=== PATIENT | male | born 1950 | race Two or more races ===

== ENCOUNTER 2017-02-18 07:30 | Inpatient (IN) | payer OTHER ==
[2017-02-17 16:33] VITALS: BMI 37.6
[2017-02-18] VITALS (21 sets, daily range): BP systolic 110–153; BP diastolic 57–157; PULSE 72–82; RESP 8–20; Ht 177.8 cm; Wt 112.0 kg
[~2017-02-18] VITALS: Ht 177.8 cm; Wt 112.0 kg
[2017-02-18] MEDS: KNEE PAIN COCKTAIL VANCO INJ SCH ×12 (07:00→13:38)
[~2017-02-18 07:30] MED LIST: ATOR40TA68 PO; GLIP-95 PO; HYDR25TA6 PO; LISI40TA9 PO; MELO7.5O PO; METF1000 PO; PANT40TA4 PO; TROS20TA2 PO
[2017-02-18] MEDS ORDERED: BACITRACIN 50000 UNITS INJ ONE (12:01)
--- NOTE | 2017-02-18 12:02 | HPN ---
Date/Time of Note Date/Time of Note DATE: 02/18/17 TIME: 12:01 Interval H&P Admission Note Pt. seen H&P reviewed: No system changes NAVARRO LIGHT PA-C Feb 18, 2017 12:02
[2017-02-18] MEDS ORDERED: POLYMYXIN B 500000 UNIT INJ ONE (12:03)
[2017-02-18] MEDS ORDERED: LIDOCAINE 2% (SDV) 5 ML INJ ONE (12:37)
[2017-02-18] MEDS ORDERED: PROPOFOL 20 ML ONE (12:37)
[2017-02-18] MEDS ORDERED: FENTAnyl 50 MCG/ML VIAL ONE (12:38)
[2017-02-18] MEDS ORDERED: MIDAZOLAM 1 MG/ML 2 ML INJ ONE (12:38)
[2017-02-18] MEDS ORDERED: PHENYLephrine (100 MCG/ML) 5ML SYG ONE ×2 (12:52→14:07)
[2017-02-18] MEDS ORDERED: METOCLOPRAMIDE 10 MG INJ ONE (12:59)
[2017-02-18] MEDS ORDERED: ONDANSETRON 4 MG INJ ONE (12:59)
[2017-02-18] MEDS ORDERED: TRANEXAMIC ACID 1,000 MG in SOD CHLORIDE 0.9% 100 ML IV SCH (13:00)
[2017-02-18] MEDS ORDERED: TRANEXAMIC ACID 1,000 MG in SOD CHLORIDE 0.9% 100 ML IV ONE (13:00)
[2017-02-18] MEDS ORDERED: FAMOTIDINE 20 MG INJ ONE (13:00)
[2017-02-18] MEDS ORDERED: VANCOMYCIN 1 GM (PMX) 250 ML ONE (13:00)
--- NOTE | 2017-02-18 15:10 | SIPON ---
Date/Time of Note Date/Time of Note DATE: 02/18/17 TIME: 15:09 Operative Report Preoperative Diagnosis Right Knee Osteoarthritis Postoperative Diagnosis Same Operation/Procedure Performed Right Total Knee Arthroplasty Surgeon Brian Salinas MD assistant wrestling coach Zoran Geiger Second assist: NAVARRO LIGHT PA-C Anesthesia: spinal Estimated blood loss: 150 - 200 ml's Transfusion Required none Specimen Bone Grafts/Implants [facility] [employer] Size 7 femur, size 6 tibia, 35mm patella, 9mm poly Complications none TIFFANIE SALINAS MD Feb 18, 2017 15:10
[2017-02-18] MEDS ORDERED: ROPIVACAINE 0.5 % 30 ML VIAL ONE (15:31)
--- NOTE | 2017-02-18 15:45 | PDOCDIS ---
Discharge Instructions DIAGNOSIS Discharge Diagnosis Status post right total knee replacement CONDITION Patient Condition: Good HOME CARE INSTRUCTIONS: Diet Instructions: Regular ACTIVITY: Activity Restrictions: Slowly Increase Activity Rest between Activity Avoid heavy lifting No Sexual Activity Do not Drive Do not operate Machinery Do not operate Power Tool Avoid Heavy Housework Keep Limb Elevated (2-3 pillows underneath the right foot/ankle only. May apply cold therapy.) Weight Bearing (Weight-bear as tolerated with front wheeled walker) Bathing Restrictions: Shower (Surgical dressing to remain on status post surgery. Please keep surgical region clean and dry.) FOLLOW UP/APPOINTMENTS Follow-up Plan Follow-up at postoperative visit provided at her preoperative exam today. NAVARRO LIGHT PA-C Feb 18, 2017 15:45
[2017-02-18] MEDS ORDERED: NA PHOSPHATE/BIPHOS 133 ML ENEMA PR PRN (16:00)
[2017-02-18] MEDS ORDERED: oxyCODONE 5 MG TAB PO PRN (16:00)
[2017-02-18] MEDS ORDERED: ZOLPIDEM 5 MG TAB PO PRN (16:00)
[2017-02-18] MEDS ORDERED: DOCUSATE SODIUM 100 MG CAP PO ONE (16:00)
[2017-02-18] MEDS ORDERED: MAGNESIUM HYDROXIDE 30ML CUP PO PRN (16:00)
[2017-02-18] MEDS ORDERED: ASPIRIN (EC) 325 MG TAB PO ONE (16:00)
[2017-02-18] MEDS ORDERED: BISACODYL 10 MG SUPP PR PRN (16:00)
[2017-02-18] MEDS ORDERED: NALOXONE (0.4 MG/ML) INJ IV PRN (16:00)
[2017-02-18] MEDS ORDERED: BETHANECHOL 25 MG TAB PO PRN (16:00)
[2017-02-18] MEDS ORDERED: DIPHENHYDRAMINE 50 MG INJ IM PRN (16:00)
--- NOTE | 2017-02-18 16:23 | RADRPT ---
PROCEDURE: XR Knee. CLINICAL INDICATION: Right knee pain TECHNIQUE: 2 images of the right knee are available for review. COMPARISON: None available FINDINGS: There is a total right knee arthroplasty in anatomic alignment. There is significant anterior soft t issue swelling and gas. There is no evidence of acute fracture. IMPRESSION: 1. Recent total right knee arthroplasty in anatomic alignment with significant anterior soft tissue swelling and gas. RPTAT: UU .Brant Quezada MD, MD Date Time Electronically viewed and signed by .Brant Quezada MD, on 02/18/2017 16:23 .K/
[2017-02-18] MEDS ORDERED: MEPERIDINE 25 MG INJ IV PRN (16:30)
[2017-02-18] MEDS ORDERED: LABETALOL HCL 20MG INJ IV PRN (16:30)
[2017-02-18] MEDS ORDERED: FENTAnyl 50 MCG/ML VIAL IV PRN (16:30)
[2017-02-18] MEDS ORDERED: DIPHENHYDRAMINE 50 MG INJ IV PRN (16:30)
[2017-02-18] MEDS ORDERED: ONDANSETRON 4 MG INJ IV PRN (16:30)
[2017-02-18] MEDS ORDERED: hydrALAzine 20 MG INJ IV PRN (16:30)
[2017-02-18] MEDS ORDERED: PROCHLORPERAZINE 10 MG INJ IV PRN (16:30)
[2017-02-18] MEDS: ONDANSETRON 4 MG INJ IV SCH ×2 (16:30→21:02)
[2017-02-18] MEDS: HYDROmorphONE (0.2 MG/ML) 10ML SYG IV PRN ×2 (16:49→16:54)
[2017-02-18] MEDS: VANCOMYCIN 1 GM (PMX) 250 ML IVPB SCH (17:42)
[2017-02-18] MEDS: SOD CHLORIDE 0.9% 1,000 ML IV SCH (17:42)
[2017-02-18] MEDS: KETOROLAC 15 MG INJ IV PRN (17:43)
[2017-02-18] MEDS: ASPIRIN (EC) 325 MG TAB PO SCH (20:57)
[2017-02-18] MEDS: oxyCODONE 5 MG TAB PO PRN (20:57)
[2017-02-19 00:29] VITALS: BP 123/58; RESP 20
[2017-02-19 03:39] VITALS: BP 122/56; PULSE 82; RESP 17
[2017-02-19] MEDS: oxyCODONE 5 MG TAB PO PRN ×5 (03:44→18:15)
[2017-02-19] MEDS: ONDANSETRON 4 MG INJ IV SCH ×2 (03:44→09:26)
[2017-02-19] MEDS: SOD CHLORIDE 0.9% 1,000 ML IV SCH ×3 (04:15→20:29)
[2017-02-19 05:16] LABS: HEMATOCRIT 28.4 % (42.0-52.0); HEMOGLOBIN 9.1 g/dl (14.0-18.0); MEAN CORPUSCULAR HEMOGLOBIN 27.5 pg (29.0-33.0); MEAN CORPUSCULAR VOLUME 85.8 fl (82.0-101.0); MEAN PLATELET VOLUME 9.5 fl (7.4-10.4); PLATELET COUNT 146 10^3/UL (140-415); POSITIVE DIFF @See below; RED BLOOD COUNT 3.31 10^6/ul (4.70-6.10); RED CELL DISTRIBUTION WIDTH 15.4 % (11.5-14.5)
[2017-02-19] MEDS: KETOROLAC 15 MG INJ IV PRN ×2 (05:36→13:15)
[2017-02-19] MEDS: PANTOPRAZOLE (EC) 40 MG TAB PO SCH (05:36)
[2017-02-19] MEDS: VANCOMYCIN 1 GM (PMX) 250 ML IVPB SCH (05:37)
[2017-02-19 05:41] LABS: CALCIUM 8.2 mg/dl (8.4-10.2); CREATININE 0.96 mg/dl (0.61-1.24); POTASSIUM 3.8 mmol/L (3.5-5.1)
[2017-02-19 08:04] VITALS: BP 123/58; RESP 20
--- NOTE | 2017-02-19 08:22 | PN ---
Date/Time of Note Date/Time of Note DATE: 02/19/17 TIME: 08:21 Assessment/Plan VTE Prophylaxis VTE Prophylaxis Intervention: ambulation, SCD's, other (Aspirin 325 mg) Lines/Catheters IV Catheter Type (from Nrsg): Peripheral IV Rubio in Place (from Nrsg): Yes Assessment/Plan Assessment/Plan -Pain Meds as needed -Dressing is clean and intact. -OOB with PT -ASA/SCDs for DVT Prophylaxis -Continue monitoring with Internal Medicine -Patient Stable Subjective 24 Hr Interval Summary 66-year-old male postop day 1 status post right total knee arthroplasty. Patient experience severe pain overnight. Pain is currently controlled with pain medication. Has yet to initiate physical therapy. Denies any chest pain/ tightness or shortness of breath. Denies any calf pain. Pain Control: moderate Exam/Review of Systems Vital Signs Vitals Vital Signs Date Time Temp Pulse Resp B/P Pulse Ox O2 Delivery O2 Flow Rate FiO2 02/19/17 08:04 99.3 83 20 123/58 97 02/19/17 03:39 Nasal Cannula 2.0 Intake and Output 02/18/17 02/18/17 02/19/17 15:00 23:00 07:00 Intake Total 2300 ml 930 ml 1540 ml Output Total 1250 ml 1000 ml Balance 2300 ml -320 ml 540 ml Exam Free Text/Dictation -No complications with dressing intact. -5/5 Tibialis Anterior, EHL Gastrocnemius/Soleus and Peroneals -Normal Sensation -Palpable DP/PT, Capillary Refill <2 secs -No Distal Edema -Negative Leslee Sign/No calf pain -Toes Freely Movable Results Result Diagram: 02/19/17 0433 02/19/17 0433 NAVARRO LIGHT PA-C Feb 19, 2017 08:22
[2017-02-19] MEDS: DOCUSATE SODIUM 100 MG CAP PO SCH ×2 (09:25→20:29)
[2017-02-19] MEDS: FERROUS FUMARATE (SR) TAB PO SCH ×2 (09:25→20:29)
[2017-02-19] MEDS: CELECOXIB 200 MG CAP PO SCH ×2 (09:25→20:28)
[2017-02-19] MEDS: GABAPENTIN 100 MG CAP PO SCH ×2 (09:25→20:29)
[2017-02-19] MEDS: ASPIRIN (EC) 325 MG TAB PO SCH ×2 (09:25→20:29)
[2017-02-19] MEDS: SENNA/DOCUSATE NA (8.6MG/50MG) TAB PO PRN (09:26)
[2017-02-19] MEDS ORDERED: ALBUTEROL/IPRATROPIUM (NEB) 3 ML AMP HHN STA (11:22)
--- NOTE | 2017-02-19 11:32 | CONS ---
Date/Time of Note Date/Time of Note DATE: 02/19/17 TIME: 11:25 Assessment/Plan Assessment/Plan Chief Complaint/Hosp Course 66-year-old male with a past medical history of obesity with obstructive sleep apnea, essential hypertension, hyperlipidemia, type 2 diabetes, osteoarthritis, who was brought to [facility] for elective right total knee arthroplasty. 1. Right knee osteoarthritis, status post right total knee arthroplasty-2016. -Postoperative anticoagulation, pain management and weightbearing per surgery. -Continue incentive spirometry. 2. Essential hypertension. Stable. -Resume home medications 3. Hyperlipidemia. -Resume home medications. Obtain a lipid panel. 4. Hyperglycemia with type 2 diabetes. -Obtain A1c. Hold oral diabetic agents. Will keep patient on Accu-Cheks/ insulin sliding scale/Lantus insulin. -Change diet to carbohydrate controlled. 5. Obstructive sleep apnea. -We will give 1 dose DuoNeb Neb. -Nocturnal CPAP PRN 6. Obesity. -Weight reduction advised. 7. Anemia, likely postoperative/dilutional. -H&H stable. Will monitor. We will also obtain an iron panel. DVT prophylaxis: As per surgery colleagues, 325 mg aspirin 6 weeks. PPI prophylaxis: Protonix. Thank you for allowing us to partake in the care. Please call us at extension [phone] you have any questions. Approximately 60 minutes was spent on this consultation. Patient was seen in collaboration with . Problems: Consultation Date/Type/Reason Admit Date/Time Feb 18, 2017 at 10:21 Type of Consultation: Internal medicine Reason for Consultation Postoperative medical management Referring Provider: TIFFANIE SALINAS MD Hx of Present Illness This is a 66-year-old male with a past medical history of obesity with obstructive sleep apnea, essential hypertension, hyperlipidemia, type 2 diabetes , osteoarthritis, who was brought to [facility] for elective right total knee arthroplasty. Patient is now POD#1. Hospitalist consultation was requested for postoperative medical management. Labs with blood glucose 231 hemoglobin 9.1 and hematocrit 28.4. Otherwise unremarkable. Vital signs within acceptable range. He denied any chest pain, palpitation, shortness of breath, nausea, vomiting, abdominal pain, headache, urinary frequency or urgency or other constitutional symptoms. Past Medical History See HPI Past Surgical History See HPI Social History Patient denied history of alcohol, smoking or illicit drug use. Smoking Status: Never smoker Exam/Review of Systems Vital Signs Vitals Vital Signs Date Time Temp Pulse Resp B/P Pulse Ox O2 Delivery O2 Flow Rate FiO2 02/19/17 08:04 99.3 83 20 123/58 97 02/19/17 03:39 Nasal Cannula 2.0 Intake and Output 02/18/17 02/18/17 02/19/17 15:00 23:00 07:00 Intake Total 2300 ml 930 ml 1540 ml Output Total 1250 ml 1000 ml Balance 2300 ml -320 ml 540 ml Exam General: Well developed,adequately built, not in any acute distress . HEENT: Normocephalic, Atraumatic, No laceration or hematoma; Eyes: PEERL, Conjunctiva clear, Anicteric sclera Neck: Supple without any lymphadenopathy, nontender, no JVD, no carotid bruits, trachea midline, no thyromegaly Cardiac: S1, S2 auscultated, regular rhythm and rate, no mumurs or gallop Pulmonary: Normal respiratory effort. Chest clear to auscultation bilaterally, no adventitious breath sounds GI: Abdomen normal to inspection. Soft, non tender, non- distended, no masses, no rebound tenderness or guarding. Bowel sounds active on all four quadrants Genitourinary: Deferred Extremities: Right knee surgical area covered with Thomas wrap. No cyanosis, clubbing, or edema. Pulses [2+] bilaterally. No focal weakness appreciated. Neurologic: Alert to person, place, time, and situation. Affect appropriate, intact sensation. Skin: Clean,dry, and intact. No ecchymosis, no rashes, or lesions Results Result Diagram: 02/19/17 0433 02/19/17 043 Results 24 hrs Laboratory Tests Test 02/18/17 15:58 02/19/17 04:33 Bedside Glucose 93 White Blood Count 6.0 Red Blood Count 3.31 L Hemoglobin 9.1 L Hematocrit 28.4 L Mean Corpuscular Volume 85.8 Mean Corpuscular Hemoglobin 27.5 L Mean Corpuscular Hemoglobin Concent 32.0 Red Cell Distribution Width 15.4 H Platelet Count 146 Mean Platelet Volume 9.5 Neutrophils % Lymphocytes % Monocytes % Eosinophils % Basophils % Nucleated Red Blood Cells % 0.0 Neutrophils # Lymphocytes # Monocytes # Eosinophils # Basophils # Nucleated Red Blood Cells # Sodium Level 138 Potassium Level 3.8 Chloride Level 100 Carbon Dioxide Level 30 Anion Gap 12 Blood Urea Nitrogen 19 Creatinine 0.96 Glucose Level 231 H Calcium Level 8.2 L Medications Medications Current Medications Sodium Chloride (NS) 1,000 ml @ 80 mls/hr [id number] IV Last administered on 02/18 17:42; Admin Dose 80 MLS/HR; Start 02/18/17 at 15:45 Oxycodone HCl (Roxicodone) 20 mg Q3H PRN PO PAIN LEVEL 8-10 Last administered on 02/19/17 10:33; Admin Dose 20 MG; Start 02/18/17 at 16:00 Oxycodone HCl (Roxicodone) 10 mg Q3H PRN PO PAIN LEVEL 4-7 Last administered on 02/19/17 08:10; Admin Dose 10 MG; Start 02/18/17 at 16:00 Oxycodone HCl (Roxicodone) 5 mg Q3H PRN PO PAIN LEVEL 1-3 Last administered on 02/18/17 18:46; Admin Dose 5 MG; Start 02/18/17 at 16:00 Zolpidem Tartrate (Ambien) 5 mg HS PRN PO INSOMNIA; Start 02/18/17 at 16:00 Aspirin (Ecotrin) 325 mg BID PO Last administered on 02/19/17 09:25; Admin Dose 325 MG; Start 02/18/17 at 21:00 Celecoxib (Celebrex) 200 mg BID PO Last administered on 02/19/17 09:25; Admin Dose 200 MG; Start 02/19/17 at 09:00 Pantoprazole (Protonix Tab) 40 mg DAILY@06 PO Last administered on 02/19/17 05 :36; Admin Dose 40 MG; Start 02/19/17 at 06:00 Docusate Sodium/ Ferrous Fumarate (Dilan-Sequels) 1 tab BID PO Last administered on 02/19/17 09:25; Admin Dose 1 TAB; Start 02/19/17 at 09:00 Docusate Sodium (Colace) 200 mg BID PO Last administered on 02/19/17 09:25; Admin Dose 200 MG; Start 02/19/17 at 09:00; Stop 02/22/17 at 08:59 Simethicone (Mylicon) 80 mg TID PRN PO DISTENSION/GAS/BLOATING; Start 02/18/17 at 16:00 Senna/Docusate Sodium (Senokot-S) 2 tab BID PRN PO CONSTIPATION Last administered on 02/19/17 09:26; Admin Dose 2 TAB; Start 02/18/17 at 16:00 Magnesium Hydroxide (Milk Of Mag) 30 ml HS PRN PO CONSTIPATION; Start 02/18/17 at 16:00 Bisacodyl (Dulcolax Supp) 10 mg DAILY PRN [place] CONSTIPATION; Start 02/18/17 at 16 :00 Sodium Biphosphate/ Sodium Phosphate (Fleet Enema) 133 ml DAILY PRN [place] CONSTIPATION; Start 02/18/17 at 16:00 Diphenhydramine HCl (Benadryl) 25 mg Q4H PRN IM ITCHING OR RASH; Start at 16:00 Naloxone HCl (Narcan) 0.2 mg Q2M PRN IV DECREASED REPIRATORY RATE; Start at 16:00 Ketorolac Tromethamine (Toradol) 15 mg Q6H PRN IV PAIN Last administered on 05:36; Admin Dose 15 MG; Start 02/18/17 at 16:00; Stop 02/21/17 at 15:59 Gabapentin (Neurontin) 100 mg BID PO Last administered on 02/19/17 09:25; Admin Dose 100 MG; Start 02/19/17 at 09:00 TERRI EASTMAN NP Feb 19, 2017 11:32
[2017-02-19 11:54] LABS: HDL CHOLESTEROL 14 mg/dl (30-78); TRIGLYCERIDES 52 mg/dl (0-149)
[2017-02-19 11:58] LABS: CHOLESTEROL < 50 mg/dl (100-200)
[2017-02-19 12:22] LABS: IRON 27 ug/dl (35-150)
[2017-02-19 12:32] LABS: TOTAL IRON BINDING CAPACITY 203 ug/dl (241-421)
[2017-02-19 12:33] LABS: ANISOCYTOSIS 1+ (0-0); EOSINOPHILS % (M) 1 % (0-7); MICROCYTOSIS 1+ (0-0); PLATELET ESTIMATE NORMAL
[2017-02-19 12:51] LABS: THYROID STIMULATING HORMONE 0.845 MIU/L (0.465-4.680)
[2017-02-19] MEDS: INSULIN ASPART [NOVOLOG] 3 ML PEN SC SCH ×3 (13:43→20:26)
--- NOTE | 2017-02-19 13:51 | OPR ---
Date/Time of Note Date/Time of Note DATE: 02/19/17 TIME: 13:46 Operative Report Procedure Date: Feb 18, 2017 Preoperative Diagnosis Right Knee Osteoarthritis Postoperative Diagnosis Right Knee Osteoarthritis Operation/Procedure Performed 1. Right total knee arthroplasty, CPT code 08225. 2. Computer assisted surgical navigational procedure for total knee, CPT code 27157 Surgeon Tiffanie Salinas MD Event Specialist Product Demonstrator Zoran Khan Event Specialist Product Demonstrator: NAVARRO LIGHT PA-C Anesthesia Type: spinal Tourniquet Time: 88 minutes @275mmHg Estimated Blood Loss: 200 - 250 ml's Transfusion none Specimen Bone Grafts/Implants [facility] [employer] Size 7 Femur, Size 6 tibial base plate, Size 35 patella, 9mm posterior stabilized poly Tubes/Drains None Complications none Pt Condition Post Procedure: stable Disposition: PACU Indications This is a 66-year-old male with end-stage osteoarthritis of the right knee who has failed nonoperative management. Risks, alternatives, and surgical intervention were discussed with the patient and informed consent was obtained. The risks of surgery include but are not limited to infection, deep venous thrombosis, pulmonary embolism, damage to neurovascular structures requiring repair and numbness. Wound healing problems, loosening of the prosthesis, wear of prosthesis, need for revision surgery, need for blood transfusion, heart attack, stroke, risks associated with anesthesia and even . Procedure Description The patient was met in the preoperative suite. The correct operative site was confirmed and marked. He was then brought into operating room. After induction of spinal anesthesia, he was placed in supine position on the operating table. Tourniquet was applied to the right upper thigh and the right lower extremity was prepped and draped in the usual sterile fashion. Before starting, a timeout was taken to identify the correct operative site to confirm that preoperative antibiotics consisting of 2 grams of IV Ancef, along with 1 gram of tranexamic acid were administered. At this point, the right leg was then elevated and exsanguinated and the tourniquet was then insufflated for the above noted time. A midline incision was made and a median parapatellar arthrotomy was then performed and the lateral patellar retinacular ligaments were released and the patella was retracted laterally. A sleeve of tissue was released from the proximal medial tibia. The cruciate ligaments and the meniscus was excised along with the suprapatellar fat pad. At this point, the navigational cutting block was then placed and set at 0 degrees of varus. The distal femoral cutting block was then placed for a 10 mm distal femoral cut at 2 degrees of flexion. The distal femoral cut was then completed. The femur was sized to a size 7. The size 7, 4- in-1 cutting block was pinned and the anterior and posterior condylar cuts followed by the anterior, posterior chamfer cuts were then completed. At this point, the tibia was then subluxed anteriorly using the navigational OrthAlign. The slope was set at 3 degrees with 0 degrees of varus and valgus, 2 mm was resected off the medial tibial plateau and 8 mm off the lateral tibial plateau. The gap pattern checker was then used and noted to have equal extension and flexion gaps. The tibia was sized to a size 6. The tibial tray was unpinned, and the keel was punched. The femoral component was placed and the femoral box was then completed. At this point, the patella was sized to 25 mm, and 11 mm were resected. The patellar button, along with the tibial and femoral component trials were placed with a 9 mm polyethylene inserts. The knee was noted to have full extension with greater than 120 degrees of flexion and stable to varus valgus stress and excellent patellar tracking. The trial components were removed, and all bony surfaces were pulse lavaged and dried. The appropriate size components were brought into the field cemented with the removal of excess cement. The knee was then held in extension while the cement cured. At this point, the tourniquet was deflated. The tranexamic acid and antibiotics were redosed. Once the cement had cured, the trial polyethylene was removed and the appropriate size 9mm posterior stabilized polyethylene insert was placed. Hemostasis was obtained. The arthrotomy was closed using #1 Vicryl in interrupted [id number] fashion followed by closure of the subcutaneous tissue with 2-0 Vicryl and skin with 3-0 Monocryl in subcuticular fashion with Steri-Strips. Sterile dressing was applied followed by a cold pack and JUAN M wrap. The patient was awakened and taken to postoperative care unit in stable condition. POSTOPERATIVE CARE: The patient will be weightbearing as tolerated. He will work with physical therapy. He will receive 2 additional doses of IV Ancef. He will have SCDs along with aspirin 325 mg p.o. b.i.d. for 6 weeks. Upon discharge , he will follow up in my office within 2 weeks postoperatively. TIFFANIE SALINAS MD Feb 19, 2017 13:51
[2017-02-19 15:27] VITALS: BP 122/62; RESP 18
[2017-02-19 19:00] VITALS: BP 122/60; RESP 20
[2017-02-19] MEDS ORDERED: INSULIN GLARGINE [LANtus] 3 ML PEN SC SCH (20:00)
[2017-02-19] MEDS: ATORVASTATIN 20 MG TAB PO SCH (20:28)
[2017-02-19] MEDS ORDERED: INSULIN ASPART [NOVOLOG] 3 ML PEN SC ONE (21:00)
[2017-02-20 02:00] VITALS: BP 111/57; RESP 20
[2017-02-20] MEDS: ACCU-CHEK XX SCH (02:00)
[2017-02-20] MEDS: oxyCODONE 5 MG TAB PO PRN ×3 (03:42→13:28)
[2017-02-20] MEDS: PANTOPRAZOLE (EC) 40 MG TAB PO SCH (05:11)
[2017-02-20 06:17] LABS: ABNORMAL IP MESSAGE 1; HEMATOCRIT 26.6 % (42.0-52.0); HEMOGLOBIN 8.5 g/dl (14.0-18.0); MEAN CORPUSCULAR HEMOGLOBIN 27.6 pg (29.0-33.0); MEAN CORPUSCULAR VOLUME 86.4 fl (82.0-101.0); PLATELET COUNT 148 10^3/UL (140-415); POSITIVE DIFF @See below; RED BLOOD COUNT 3.08 10^6/ul (4.70-6.10); RED CELL DISTRIBUTION WIDTH 15.1 % (11.5-14.5)
[2017-02-20 07:09] LABS: CALCIUM 8.3 mg/dl (8.4-10.2); CREATININE 0.92 mg/dl (0.61-1.24); POTASSIUM 3.8 mmol/L (3.5-5.1)
--- NOTE | 2017-02-20 08:12 | PN ---
Date/Time of Note Date/Time of Note DATE: 02/20/17 TIME: 08:10 Assessment/Plan VTE Prophylaxis VTE Prophylaxis Intervention: ambulation, SCD's, other (Aspirin 325 mg) Lines/Catheters IV Catheter Type (from Nrsg): Saline Lock Rubio in Place (from Nrsg): Yes Assessment/Plan Assessment/Plan -Pain Meds as needed -Dressing change performed today. -OOB with PT. may use CPM machine at rest due to significant stiffness. Initiate range of motion at 30 and gradually progress as tolerated. May use CPM twice daily over a span of 2 hours with each session. -ASA/SCDs for DVT Prophylaxis -Continue monitoring with Internal Medicine -Patient Stable Subjective 24 Hr Interval Summary 66-year-old male postop day 2 status post right total knee arthroplasty. Patient continues with significant pain complaints. Patient has had physical therapy but states that he is having significant difficulty with weightbearing. Denies any chest pain/tightness/shortness of breath. Denies any calf pain. Is having stiffness in the knee. Currently resting comfortably in bed. Exam/Review of Systems Vital Signs Vitals Vital Signs Date Time Temp Pulse Resp B/P Pulse Ox O2 Delivery O2 Flow Rate FiO2 02/20/17 02:00 98.8 82 20 111/57 98 02/19/17 20:00 Nasal Cannula 2.0 Intake and Output 02/19/17 02/19/17 02/20/17 15:00 23:00 07:00 Intake Total 570 ml 1280 ml 500 ml Output Total 800 ml 400 ml Balance 570 ml 480 ml 100 ml Exam Free Text/Dictation -No complications with dressing intact. -5/5 Tibialis Anterior, EHL Gastrocnemius/Soleus and Peroneals -Significant stiffness to the knee is he able to flex about 20. Near full extension with about 5-10 lag. -Normal Sensation -Palpable DP/PT, Capillary Refill <2 secs -Mild edema -Negative Leslee Sign/No calf pain -Toes Freely Movable Constitutional: alert, oriented, well developed Results Result Diagram: 02/20/17 0437 02/20/17 0437 NAVARRO LIGHT PA-C Feb 20, 2017 08:12
[2017-02-20 08:15] VITALS: BP 125/58; PULSE 64; RESP 16
[2017-02-20] MEDS ORDERED: PANTOPRAZOLE (EC) 40 MG TAB PO SCH (09:00)
[2017-02-20] MEDS: FERROUS FUMARATE (SR) TAB PO SCH ×2 (09:15→20:28)
[2017-02-20] MEDS: CELECOXIB 200 MG CAP PO SCH ×2 (09:15→20:28)
[2017-02-20] MEDS: GABAPENTIN 100 MG CAP PO SCH ×2 (09:15→20:28)
[2017-02-20] MEDS: ASPIRIN (EC) 325 MG TAB PO SCH ×2 (09:15→20:29)
[2017-02-20] MEDS: LISINOPRIL 20 MG TAB PO SCH (09:16)
[2017-02-20] MEDS: DOCUSATE SODIUM 100 MG CAP PO SCH ×2 (09:16→20:29)
[2017-02-20] MEDS: HYDROCHLOROTHIAZIDE 25 MG TAB PO SCH (09:16)
[2017-02-20] MEDS: INSULIN ASPART [NOVOLOG] 3 ML PEN SC SCH ×5 (09:21→20:31)
[2017-02-20 10:04] LABS: GIANT THROMBO% (M) 1 % (0-0); MONOCYTES % (M) 6 % (0-11); PLATELET ESTIMATE NORMAL; POLYCHROMASIA 3+ (0-0); REACTIVE LYMPHOCYTES% (M) 15 % (0-0)
--- NOTE | 2017-02-20 14:15 | CONS ---
Date/Time of Note Date/Time of Note DATE: 02/20/17 TIME: 14:08 Assessment/Plan Assessment/Plan Chief Complaint/Hosp Course 66-year-old male with a past medical history of obesity with obstructive sleep apnea, essential hypertension, hyperlipidemia, type 2 diabetes, osteoarthritis, who was brought to [facility] for elective right total knee arthroplasty. 1. Right knee osteoarthritis, status post right total knee arthroplasty-2016. -Postoperative anticoagulation, pain management and weightbearing per surgery. -Continue incentive spirometry. 2. Essential hypertension. Stable. -Continue home medications 3. Hyperlipidemia. -On statin. 4. Hyperglycemia with type 2 diabetes.A1C 8.1. -Continue Accu-Cheks/insulin sliding scale/Lantus insulin. Add premeal insulin for optimal control. - carbohydrate controlled. 5. Obstructive sleep apnea. -Nocturnal CPAP PRN 6. Obesity. -Weight reduction advised. 7. Iron deficiency anemia. -Replete with intravenous iron. -H&H stable. Will monitor. DVT prophylaxis: As per surgery colleagues, 325 mg aspirin 6 weeks. PPI prophylaxis: Protonix. Agree with discharge planning with further rehabilitation. Thank you for allowing us to partake in the care. Please call us at extension [phone] you have any questions. Patient was seen in collaboration with . Problems: Consultation Date/Type/Reason Admit Date/Time Feb 18, 2017 at 10:21 Initial Consult Date Type of Consultation: Internal medicine Referring Provider: TIFFANIE SALINAS MD 24 HR Interval Summary Free Text/Dictation No acute distress. Has been seen by physical therapy and recommends further inpatient rehabilitation. Pain is improved today. Exam/Review of Systems Vital Signs Vitals Vital Signs Date Time Temp Pulse Resp B/P Pulse Ox O2 Delivery O2 Flow Rate FiO2 02/20/17 08:15 99.0 64 16 125/58 97 Nasal Cannula 02/19/17 20:00 2.0 Intake and Output 02/19/17 02/19/17 02/20/17 14:59 22:59 06:59 Intake Total 570 ml 1280 ml 500 ml Output Total 800 ml 400 ml Balance 570 ml 480 ml 100 ml Exam General: Well developed,adequately built, not in any acute distress . HEENT: Normocephalic, Atraumatic, No laceration or hematoma; Eyes: PEERL, Conjunctiva clear, Anicteric sclera Neck: Supple without any lymphadenopathy, nontender, no JVD, no carotid bruits, trachea midline, no thyromegaly Cardiac: S1, S2 auscultated, regular rhythm and rate, no mumurs or gallop Pulmonary: Normal respiratory effort. Chest clear to auscultation bilaterally, no adventitious breath sounds GI: Abdomen normal to inspection. Soft, non tender, non- distended, no masses, no rebound tenderness or guarding. Bowel sounds active on all four quadrants Genitourinary: Deferred Extremities: Right knee surgical area covered with Thomas wrap. No cyanosis, clubbing, or edema. Pulses [2+] bilaterally. No focal weakness appreciated. Neurologic: Alert to person, place, time, and situation. Affect appropriate, intact sensation. Skin: Clean,dry, and intact. No ecchymosis, no rashes, or lesions Results Result Diagram: 02/20/17 0437 02/20/17 0437 Results 24 hrs Laboratory Tests Test 02/19/17 17:39 02/19/17 20:22 02/20/17 02:35 02/20/17 04:37 Bedside Glucose 297 H 301 H 176 White Blood Count 8.0 # Red Blood Count 3.08 L Hemoglobin 8.5 L Hematocrit 26.6 L Mean Corpuscular Volume 86.4 Mean Corpuscular Hemoglobin 27.6 L Mean Corpuscular Hemoglobin Concent 32.0 Red Cell Distribution Width 15.1 H Platelet Count 148 Mean Platelet Volume 10.0 Neutrophils % Segmented Neutrophils % (Manual) 32 L Band Neutrophils % (Manual) 5 H Lymphocytes % Lymphocytes % (Manual) 42 Reactive Lymphocytes % (Manual) 15 H Monocytes % Monocytes % (Manual) 6 Eosinophils % Basophils % Nucleated Red Blood Cells % 0.0 Neutrophils # Neutrophils # (Manual) 2.6 Band Neutrophils # 0.4 Absolute Lymphocytes (Manual) 3.3 H Lymphocytes # Reactive Lymphocytes # 1.2 H Monocytes # Absolute Monocytes (Manual) 0.4 Eosinophils # Basophils # Nucleated Red Blood Cells # Platelet Estimate NORMAL Giant Platelets 1 H Polychromasia 3+ Sodium Level 135 Potassium Level 3.8 Chloride Level 96 L Carbon Dioxide Level 31 Anion Gap 12 Blood Urea Nitrogen 16 Creatinine 0.92 Glucose Level 187 Calcium Level 8.3 L Test 02/20/17 08:45 02/20/17 12:55 Bedside Glucose 204 284 H Medications Medications Current Medications Sodium Chloride (NS) 1,000 ml @ 80 mls/hr [id number] IV Last administered on 02/18 17:42; Admin Dose 80 MLS/HR; Start 02/18/17 at 15:45 Oxycodone HCl (Roxicodone) 20 mg Q3H PRN PO PAIN LEVEL 8-10 Last administered on 02/20/17 13:28; Admin Dose 20 MG; Start 02/18/17 at 16:00 Oxycodone HCl (Roxicodone) 10 mg Q3H PRN PO PAIN LEVEL 4-7 Last administered on 02/19/17 08:10; Admin Dose 10 MG; Start 02/18/17 at 16:00 Oxycodone HCl (Roxicodone) 5 mg Q3H PRN PO PAIN LEVEL 1-3 Last administered on 02/18/17 18:46; Admin Dose 5 MG; Start 02/18/17 at 16:00 Zolpidem Tartrate (Ambien) 5 mg HS PRN PO INSOMNIA; Start 02/18/17 at 16:00 Aspirin (Ecotrin) 325 mg BID PO Last administered on 02/20/17 09:15; Admin Dose 325 MG; Start 02/18/17 at 21:00 Celecoxib (Celebrex) 200 mg BID PO Last administered on 02/20/17 09:15; Admin Dose 200 MG; Start 02/19/17 at 09:00 Pantoprazole (Protonix Tab) 40 mg DAILY@06 PO Last administered on 02/20/17 05 :11; Admin Dose 40 MG; Start 02/19/17 at 06:00 Docusate Sodium/ Ferrous Fumarate (Dilan-Sequels) 1 tab BID PO Last administered on 02/20/17 09:15; Admin Dose 1 TAB; Start 02/19/17 at 09:00 Docusate Sodium (Colace) 200 mg BID PO Last administered on 02/20/17 09:16; Admin Dose 200 MG; Start 02/19/17 at 09:00; Stop 02/22/17 at 08:59 Simethicone (Mylicon) 80 mg TID PRN PO DISTENSION/GAS/BLOATING; Start 02/18/17 at 16:00 Senna/Docusate Sodium (Senokot-S) 2 tab BID PRN PO CONSTIPATION Last administered on 02/19/17 09:26; Admin Dose 2 TAB; Start 02/18/17 at 16:00 Magnesium Hydroxide (Milk Of Mag) 30 ml HS PRN PO CONSTIPATION; Start 02/18/17 at 16:00 Bisacodyl (Dulcolax Supp) 10 mg DAILY PRN OR CONSTIPATION; Start 02/18/17 at 16 :00 Sodium Biphosphate/ Sodium Phosphate (Fleet Enema) 133 ml DAILY PRN OR CONSTIPATION; Start 02/18/17 at 16:00 Diphenhydramine HCl (Benadryl) 25 mg Q4H PRN IM ITCHING OR RASH; Start at 16:00 Naloxone HCl (Narcan) 0.2 mg Q2M PRN IV DECREASED REPIRATORY RATE; Start at 16:00 Ketorolac Tromethamine (Toradol) 15 mg Q6H PRN IV PAIN Last administered on 13:15; Admin Dose 15 MG; Start 02/18/17 at 16:00; Stop 02/21/17 at 15:59 Gabapentin (Neurontin) 100 mg BID PO Last administered on 02/20/17 09:15; Admin Dose 100 MG; Start 02/19/17 at 09:00 Atorvastatin Calcium (Lipitor) 20 mg QHS PO Last administered on 02/19/17 20: 28; Admin Dose 20 MG; Start 02/19/17 at 21:00 Hydrochlorothiazide (Hydrochlorothiazide) 25 mg DAILY PO Last administered on 02/20/17 09:16; Admin Dose 25 MG; Start 02/20/17 at 09:00 Lisinopril (Zestril) 40 mg DAILY PO Last administered on 02/20/17 09:16; Admin Dose 40 MG; Start 02/20/17 at 09:00 Diagnostic Test (Pha) (Accu-Chek) 1 ea 02 XX ; Start 02/20/17 at 02:00 Insulin Glargine (Lantus) 20 unit DAILY@20 SC ; Start 02/20/17 at 20:00 TERRI EASTMAN NP Feb 20, 2017 14:15
[2017-02-20 14:49] VITALS: BP 132/65; RESP 18
[2017-02-20] MEDS ORDERED: GLUCAGON 1 MG INJ IM PRN (17:00)
[2017-02-20] MEDS ORDERED: DEXTROSE 50% 50 ML SYRINGE IV PRN ×2 (17:00)
[2017-02-20] MEDS ORDERED: GLUCOSE GEL 15 GRAM TUBE PO PRN ×2 (17:00)
[2017-02-20] MEDS ORDERED: GLUCOSE GEL 15 GRAM TUBE BUCCAL PRN (17:00)
[2017-02-20] MEDS: SOD FERRIC GLUC COMPLX 125 MG in SOD CHLORIDE 0.9% 100 ML IVPB SCH (17:14)
[2017-02-20] MEDS: SOD CHLORIDE 0.9% 1,000 ML IV SCH (17:26)
[2017-02-20] MEDS ORDERED: INSULIN GLARGINE [LANtus] 3 ML PEN SC SCH (20:00)
[2017-02-20] MEDS: ATORVASTATIN 20 MG TAB PO SCH (20:28)
[2017-02-20 21:15] VITALS: BP 138/61; RESP 20
[2017-02-21 00:15] VITALS: PULSE 118
[2017-02-21] MEDS: ACCU-CHEK XX SCH (02:00)
[2017-02-21 03:31] VITALS: BP 137/75; RESP 20
[2017-02-21 05:45] LABS: HEMATOCRIT 26.2 % (42.0-52.0); HEMOGLOBIN 8.5 g/dl (14.0-18.0); MEAN CORPUSCULAR HEMOGLOBIN 27.5 pg (29.0-33.0); MEAN CORPUSCULAR HGB CONC 32.4 g/dl (32.0-37.0); MEAN CORPUSCULAR VOLUME 84.8 fl (82.0-101.0); MEAN PLATELET VOLUME 9.9 fl (7.4-10.4); PLATELET COUNT 152 10^3/UL (140-415); POSITIVE DIFF @See below; RED BLOOD COUNT 3.09 10^6/ul (4.70-6.10); RED CELL DISTRIBUTION WIDTH 14.9 % (11.5-14.5); WHITE BLOOD COUNT 7.9 10^3/ul (4.8-10.8)
[2017-02-21] MEDS: SOD CHLORIDE 0.9% 1,000 ML IV SCH ×2 (06:15→17:52)
[2017-02-21 06:19] LABS: CALCIUM 8.9 mg/dl (8.4-10.2); CREATININE 0.74 mg/dl (0.61-1.24); POTASSIUM 4.3 mmol/L (3.5-5.1)
[2017-02-21] MEDS: PANTOPRAZOLE (EC) 40 MG TAB PO SCH (06:35)
--- NOTE | 2017-02-21 07:56 | PN ---
Date/Time of Note Date/Time of Note DATE: 02/21/17 TIME: 07:53 Assessment/Plan VTE Prophylaxis VTE Prophylaxis Intervention: ambulation, SCD's, other (Aspirin 325 mg) Lines/Catheters IV Catheter Type (from Nrsg): Saline Lock Rubio in Place (from Nrsg): Yes Assessment/Plan Assessment/Plan -Pain Meds as needed -ASA for DVT Prophylaxis x 6 weeks outpatient discussed. -Continue monitoring as outpatient on discharge -Follow-up at scheduled postop outpatient appointment or sooner if there is any issue. -Patient Stable -There is concern that patient may not be proactive status post surgery. Lengthy discussion regarding the importance of being proactive with performing range of motion regards to flexion and full extension of the knee every 1-2 hours while in bed as well as fully committing during physical therapy sessions. Response given back by patient does not instill confidence that he is being proactive status post surgery. Patient is aware of the risks in regards to significant scar formation and limited functionality to the knee. We will continue to monitor. -Discharge to ARU Subjective 24 Hr Interval Summary 66-year-old male postop day 3 status post right total knee arthroplasty. Continues with stiffness of the right knee especially with flexion. CPM machine was initiated yesterday. Patient is having trouble as he is having limited weightbearing. Using front wheeled walker but appears to have touchdown weightbearing and stiffness per patient complaints. Denies any calf pain. Denies any chest pain/tightness. Currently resting comfortably in bed. Recommended by physical therapist the patient be transferred to inpatient rehab for closer monitoring and improvement in functionality. Pain Control: well controlled Exam/Review of Systems Vital Signs Vitals Vital Signs Date Time Temp Pulse Resp B/P Pulse Ox O2 Delivery O2 Flow Rate FiO2 02/21/17 03:31 98.6 77 20 137/75 95 02/21/17 03:12 3.0 02/21/17 00:15 40 02/20/17 08:30 Nasal Cannula Intake and Output 02/20/17 02/20/17 02/21/17 15:00 23:00 07:00 Intake Total 1310 ml 300 ml Output Total 950 ml 550 ml Balance 360 ml -250 ml Exam Free Text/Dictation -No complications with dressing intact. -5/5 Tibialis Anterior, EHL Gastrocnemius/Soleus and Peroneals -Normal Sensation -Palpable DP/PT, Capillary Refill <2 secs -No Distal Edema -Negative Leslee Sign/No calf pain -Toes Freely Movable Constitutional: alert, oriented, well developed Results Result Diagram: 02/21/17 0454 02/21/17 0454 NAVARRO LIGHT PA-C Feb 21, 2017 07:56
[2017-02-21 08:00] VITALS: BP 114/58; RESP 18
[2017-02-21] MEDS: ASPIRIN (EC) 325 MG TAB PO SCH ×2 (09:03→20:17)
[2017-02-21] MEDS: DOCUSATE SODIUM 100 MG CAP PO SCH ×2 (09:03→20:17)
[2017-02-21] MEDS: GABAPENTIN 100 MG CAP PO SCH ×2 (09:04→20:17)
[2017-02-21] MEDS: CELECOXIB 200 MG CAP PO SCH ×2 (09:04→20:17)
[2017-02-21] MEDS: FERROUS FUMARATE (SR) TAB PO SCH ×2 (09:04→20:16)
[2017-02-21] MEDS: HYDROCHLOROTHIAZIDE 25 MG TAB PO SCH (09:04)
[2017-02-21] MEDS: LISINOPRIL 20 MG TAB PO SCH (09:05)
[2017-02-21] MEDS: SENNA/DOCUSATE NA (8.6MG/50MG) TAB PO PRN (09:06)
[2017-02-21] MEDS: INSULIN ASPART [NOVOLOG] 3 ML PEN SC SCH ×7 (09:14→20:28)
--- NOTE | 2017-02-21 10:24 | CONS ---
Date/Time of Note Date/Time of Note DATE: 02/21/17 TIME: 10:23 Assessment/Plan Assessment/Plan Chief Complaint/Hosp Course 66-year-old male with a past medical history of obesity with obstructive sleep apnea, essential hypertension, hyperlipidemia, type 2 diabetes, osteoarthritis, who was brought to [facility] for elective right total knee arthroplasty. 1. Right knee osteoarthritis, status post right total knee arthroplasty-2016. -Postoperative anticoagulation, pain management and weightbearing per surgery. -Continue incentive spirometry. 2. Essential hypertension. Stable. -Continue home medications 3. Hyperlipidemia. -On statin. 4. Hyperglycemia with type 2 diabetes.A1C 8.1. -Uptitrate Lantus to 24 units with pre-meals 8 units. Resume metformin. Continue continue Accu-Cheks/insulin sliding scale. - carbohydrate controlled. 5. Obstructive sleep apnea. -Nocturnal CPAP PRN 6. Obesity. -Weight reduction advised. 7. Iron deficiency anemia. -Replete with intravenous iron. -H&H stable. Will monitor. DVT prophylaxis: As per surgery colleagues, 325 mg aspirin 6 weeks. PPI prophylaxis: Protonix. Agree with discharge planning with further rehabilitation. Thank you for allowing us to partake in the care. Please call us at extension [phone] you have any questions. Patient was seen in collaboration with Problems: Consultation Date/Type/Reason Admit Date/Time Feb 18, 2017 at 10:21 Type of Consultation: Internal medicine Referring Provider: TIFFANIE SALINAS MD 24 HR Interval Summary Free Text/Dictation Overall, patient doing well. He has been up with physical therapy with fair tolerance. Recommended acute rehab for further rehabilitation. Patient is also having blood sugar running high. Exam/Review of Systems Vital Signs Vitals Vital Signs Date Time Temp Pulse Resp B/P Pulse Ox O2 Delivery O2 Flow Rate FiO2 02/21/17 08:00 98.3 79 18 114/58 98 02/21/17 03:12 3.0 02/21/17 00:15 40 02/20/17 08:30 Nasal Cannula Intake and Output 02/20/17 02/20/17 02/21/17 14:59 22:59 06:59 Intake Total 1310 ml 300 ml Output Total 950 ml 550 ml Balance 360 ml -250 ml Exam General: Well developed,adequately built, not in any acute distress . HEENT: Normocephalic, Atraumatic, No laceration or hematoma; Eyes: PEERL, Conjunctiva clear, Anicteric sclera Neck: Supple without any lymphadenopathy, nontender, no JVD, no carotid bruits, trachea midline, no thyromegaly Cardiac: S1, S2 auscultated, regular rhythm and rate, no mumurs or gallop Pulmonary: Normal respiratory effort. Chest clear to auscultation bilaterally, no adventitious breath sounds GI: Abdomen normal to inspection. Soft, non tender, non- distended, no masses, no rebound tenderness or guarding. Bowel sounds active on all four quadrants Genitourinary: Deferred Extremities: Right knee surgical area covered with Thomas wrap. No cyanosis, clubbing, or edema. Pulses [2+] bilaterally. No focal weakness appreciated. Neurologic: Alert to person, place, time, and situation. Affect appropriate, intact sensation. Skin: Clean,dry, and intact. No ecchymosis, no rashes, or lesions Results Result Diagram: 02/21/17 0454 02/21/17 0454 Results 24 hrs Laboratory Tests Test 02/20/17 12:55 02/20/17 17:33 02/20/17 20:26 02/21/17 02:13 Bedside Glucose 284 H 245 H 214 228 H Test 02/21/17 04:54 02/21/17 09:01 White Blood Count 7.9 Red Blood Count 3.09 L Hemoglobin 8.5 L Hematocrit 26.2 L Mean Corpuscular Volume 84.8 Mean Corpuscular Hemoglobin 27.5 L Mean Corpuscular Hemoglobin Concent 32.4 Red Cell Distribution Width 14.9 H Platelet Count 152 Mean Platelet Volume 9.9 Neutrophils % Lymphocytes % Monocytes % Eosinophils % Basophils % Nucleated Red Blood Cells % 0.0 Neutrophils # Lymphocytes # Monocytes # Eosinophils # Basophils # Nucleated Red Blood Cells # Sodium Level 133 L Potassium Level 4.3 Chloride Level 94 L Carbon Dioxide Level 30 Anion Gap 13 Blood Urea Nitrogen 18 Creatinine 0.74 Glucose Level 245 H Calcium Level 8.9 Bedside Glucose 227 H Medications Medications Current Medications Sodium Chloride (NS) 1,000 ml @ 80 mls/hr [id number] IV Last administered on 02/18t 17:42; Admin Dose 80 MLS/HR; Start 02/18/17 at 15:45 Oxycodone HCl (Roxicodone) 20 mg Q3H PRN PO PAIN LEVEL 8-10 Last administered on 02/20/17 13:28; Admin Dose 20 MG; Start 02/18/17 at 16:00 Oxycodone HCl (Roxicodone) 10 mg Q3H PRN PO PAIN LEVEL 4-7 Last administered on 02/19/17 08:10; Admin Dose 10 MG; Start 02/18/17 at 16:00 Oxycodone HCl (Roxicodone) 5 mg Q3H PRN PO PAIN LEVEL 1-3 Last administered on 02/18/17 18:46; Admin Dose 5 MG; Start 02/18/17 at 16:00 Zolpidem Tartrate (Ambien) 5 mg HS PRN PO INSOMNIA; Start 02/18/17 at 16:00 Aspirin (Ecotrin) 325 mg BID PO Last administered on 02/21/17 09:03; Admin Dose 325 MG; Start 02/18/17 at 21:00 Celecoxib (Celebrex) 200 mg BID PO Last administered on 02/21/17 09:04; Admin Dose 200 MG; Start 02/19/17 at 09:00 Pantoprazole (Protonix Tab) 40 mg DAILY@06 PO Last administered on 02/21/17 06 :35; Admin Dose 40 MG; Start 02/19/17 at 06:00 Docusate Sodium/ Ferrous Fumarate (Dilan-Sequels) 1 tab BID PO Last administered on 02/21/17 09:04; Admin Dose 1 TAB; Start 02/19/17 at 09:00 Docusate Sodium (Colace) 200 mg BID PO Last administered on 02/21/17 09:03; Admin Dose 200 MG; Start 02/19/17 at 09:00; Stop 02/22/17 at 08:59 Simethicone (Mylicon) 80 mg TID PRN PO DISTENSION/GAS/BLOATING; Start 02/18/17 at 16:00 Senna/Docusate Sodium (Senokot-S) 2 tab BID PRN PO CONSTIPATION Last administered on 02/21/17 09:06; Admin Dose 2 TAB; Start 02/18/17 at 16:00 Magnesium Hydroxide (Milk Of Mag) 30 ml HS PRN PO CONSTIPATION; Start 02/18/17 at 16:00 Bisacodyl (Dulcolax Supp) 10 mg DAILY PRN MA CONSTIPATION; Start 02/18/17 at 16 :00 Sodium Biphosphate/ Sodium Phosphate (Fleet Enema) 133 ml DAILY PRN MA CONSTIPATION; Start 02/18/17 at 16:00 Diphenhydramine HCl (Benadryl) 25 mg Q4H PRN IM ITCHING OR RASH Last administered on 02/20/17 17:23; Admin Dose 25 MG; Start 02/18/17 at 16:00 Naloxone HCl (Narcan) 0.2 mg Q2M PRN IV DECREASED REPIRATORY RATE; Start at 16:00 Ketorolac Tromethamine (Toradol) 15 mg Q6H PRN IV PAIN Last administered on 13:15; Admin Dose 15 MG; Start 02/18/17 at 16:00; Stop 02/21/17 at 15:59 Gabapentin (Neurontin) 100 mg BID PO Last administered on 02/21/17 09:04; Admin Dose 100 MG; Start 02/19/17 at 09:00 Atorvastatin Calcium (Lipitor) 20 mg QHS PO Last administered on 02/20/17 20: 28; Admin Dose 20 MG; Start 02/19/17 at 21:00 Hydrochlorothiazide (Hydrochlorothiazide) 25 mg DAILY PO Last administered on 02/21/17 09:04; Admin Dose 25 MG; Start 02/20/17 at 09:00 Lisinopril (Zestril) 40 mg DAILY PO Last administered on 02/21/17 09:05; Admin Dose 40 MG; Start 02/20/17 at 09:00 Diagnostic Test (Pha) (Accu-Chek) 1 ea 02 XX ; Start 02/20/17 at 02:00 Insulin Glargine 20 unit 20 unit DAILY@20 SC Last administered on 02/20/17 20: 32; Admin Dose 20 UNIT; Start 02/20/17 at 20:00 Ferric Sodium Gluconate Complex/ Sodium Chloride (Ferrlecit/NS) 110 ml @ 110 mls/hr Q24H IVPB Last administered on 02/20/17 17:14; Admin Dose 110 MLS/HR; Start 02/20/17 at 14:30; Stop 02/24/17 at 15:29 Miscellaneous Information 1 ea NOTE XX ; Start 02/20/17 at 17:00 Glucose (Glutose) 15 gm Q15M PRN PO DECREASED GLUCOSE; Start 02/20/17 at 17:00 Glucose (Glutose) 22.5 gm Q15M PRN PO DECREASED GLUCOSE; Start 02/20/17 at 17: 00 Dextrose (D50w Syringe) 25 ml Q15M PRN IV DECREASED GLUCOSE; Start 02/20/17 at 17:00 Dextrose (D50w Syringe) 50 ml Q15M PRN IV DECREASED GLUCOSE; Start 02/20/17 at 17:00 Glucagon (Glucagen) 1 mg Q15M PRN IM DECREASED GLUCOSE; Start 02/20/17 at 17:00 Glucose (Glutose) 15 gm Q15M PRN BUCCAL DECREASED GLUCOSE; Start 02/20/17 at 17 :00 TERRI EASTMAN NP Feb 21, 2017 10:24
[2017-02-21] MEDS ORDERED: SOD FERRIC GLUC COMPLX 125 MG in SOD CHLORIDE 0.9% 100 ML IVPB SCH (10:30)
[2017-02-21 10:51] LABS: ANISOCYTOSIS 1+ (0-0); MONOCYTES % (M) 4 % (0-11); PLATELET ESTIMATE NORMAL; POLYCHROMASIA 2+ (0-0); REACTIVE LYMPHOCYTES% (M) 2 % (0-0)
[2017-02-21] MEDS: metFORMIN 500 MG TAB PO SCH ×2 (12:58→17:46)
[2017-02-21 14:06] VITALS: BP 118/58; RESP 18
[2017-02-21] MEDS: SOD FERRIC GLUC COMPLX 125 MG in SOD CHLORIDE 0.9% 100 ML IVPB SCH (16:30)
[2017-02-21 19:31] VITALS: BP 113/64; RESP 22
[2017-02-21] MEDS ORDERED: INSULIN GLARGINE [LANtus] 3 ML PEN SC SCH (20:00)
[2017-02-21] MEDS: ATORVASTATIN 20 MG TAB PO SCH (20:17)
[2017-02-22 00:30] VITALS: BP 132/68; PULSE 81; RESP 18
[2017-02-22] MEDS: ACCU-CHEK XX SCH (02:20)
[2017-02-22] MEDS: oxyCODONE 5 MG TAB PO PRN ×3 (02:39→20:28)
[2017-02-22 05:25] LABS: BASOPHILS % 0.2 % (0.0-2.0); EOSINOPHILS # 0.1 10^3/ul (0.0-0.5); EOSINOPHILS % 1.7 % (0.0-7.0); HEMATOCRIT 25.2 % (42.0-52.0); HEMOGLOBIN 8.3 g/dl (14.0-18.0); LYMPHOCYTES % 56.7 % (15.0-51.0); MEAN CORPUSCULAR HEMOGLOBIN 27.9 pg (29.0-33.0); MEAN CORPUSCULAR HGB CONC 32.9 g/dl (32.0-37.0); MEAN CORPUSCULAR VOLUME 84.6 fl (82.0-101.0); MEAN PLATELET VOLUME 9.7 fl (7.4-10.4); MONOCYTE # 0.3 10^3/ul (0.3-0.9); MONOCYTES % 5.6 % (0.0-11.0); NEUTROPHIL # 1.9 10^3/ul (1.6-7.5); NEUTROPHILS % 35.6 % (39.0-77.0); PLATELET COUNT 156 10^3/UL (140-415); RED BLOOD COUNT 2.98 10^6/ul (4.70-6.10); RED CELL DISTRIBUTION WIDTH 14.7 % (11.5-14.5); WHITE BLOOD COUNT 5.2 10^3/ul (4.8-10.8)
[2017-02-22] MEDS: PANTOPRAZOLE (EC) 40 MG TAB PO SCH (06:02)
[2017-02-22] MEDS: SOD CHLORIDE 0.9% 1,000 ML IV SCH ×2 (06:03→18:49)
[2017-02-22 06:25] LABS: CALCIUM 8.8 mg/dl (8.4-10.2); CREATININE 0.66 mg/dl (0.61-1.24); POTASSIUM 4.1 mmol/L (3.5-5.1)
[2017-02-22 07:19] VITALS: BP 123/59; RESP 20
--- NOTE | 2017-02-22 07:45 | PN ---
Date/Time of Note Date/Time of Note DATE: 02/22/17 TIME: 07:42 Assessment/Plan VTE Prophylaxis VTE Prophylaxis Intervention: ambulation, SCD's, other (Aspirin 325 mg) Lines/Catheters IV Catheter Type (from Nrsg): Peripheral IV Rubio in Place (from Nrsg): No Assessment/Plan Assessment/Plan -Pain Meds as needed -ASA for DVT Prophylaxis x 6 weeks outpatient discussed. -Continue monitoring as outpatient on discharge -Follow-up at scheduled postop outpatient appointment or sooner if there is any issue. -Concern of patient's pro-activity. Patient states that he is unable to walk as he is limited by pain but on exam today his range of motion palpation while he is lying down there is no pain complaints. Patient then states that he was not sure if he was supposed to be walking. Lisa seems a bit inconsistent. There is concern regarding whether patient will be proactive in performing postsurgical rehabilitation. -Patient Stable -Discharge to ARU Subjective 24 Hr Interval Summary 66-year-old male postop day 4 status post right total knee arthroplasty. Denies any pain. No acute overnight events. Patient has been using CPM with flexion up to 65. Patient still remains significantly limited with flexion actively. Patient has been not been performing much weightbearing he says due to pain. Denies any chest pain/tightness. Denies any calf pain. Pain Control: well controlled Exam/Review of Systems Vital Signs Vitals Vital Signs Date Time Temp Pulse Resp B/P Pulse Ox O2 Delivery O2 Flow Rate FiO2 02/22/17 07:19 98.1 83 20 123/59 96 02/22/17 06:08 2.0 27 02/22/17 00:30 Nasal Cannula Intake and Output 02/21/17 02/21/17 02/22/17 15:00 23:00 07:00 Intake Total 950 ml Output Total 800 ml Balance 150 ml Exam Free Text/Dictation -No complications with dressing intact. -4+/5 Tibialis Anterior, EHL Gastrocnemius/Soleus and Peroneals -Patient able to actively flex up to 20-30. Near full extension with about 5 lag. -Normal Sensation -Palpable DP/PT, Capillary Refill <2 secs -No Distal Edema -Negative Leslee Sign/No calf pain -Toes Freely Movable Constitutional: alert, oriented, well developed Results Result Diagram: 02/22/17 0452 02/22/17 0452 NAVARRO LIGHT PA-C Feb 22, 2017 07:45
[2017-02-22] MEDS: metFORMIN 500 MG TAB PO SCH ×2 (08:56→17:46)
[2017-02-22] MEDS: CELECOXIB 200 MG CAP PO SCH ×2 (08:57→20:27)
[2017-02-22] MEDS: FERROUS FUMARATE (SR) TAB PO SCH ×2 (08:57→20:27)
[2017-02-22] MEDS: ASPIRIN (EC) 325 MG TAB PO SCH ×2 (08:57→20:27)
[2017-02-22] MEDS: HYDROCHLOROTHIAZIDE 25 MG TAB PO SCH (08:58)
[2017-02-22] MEDS: GABAPENTIN 100 MG CAP PO SCH ×2 (08:58→20:27)
[2017-02-22] MEDS: LISINOPRIL 20 MG TAB PO SCH (08:59)
[2017-02-22] MEDS: INSULIN ASPART [NOVOLOG] 3 ML PEN SC SCH ×7 (09:01→21:00)
--- NOTE | 2017-02-22 11:13 | CONS ---
Date/Time of Note Date/Time of Note DATE: 02/22/17 TIME: 11:09 Assessment/Plan Assessment/Plan Chief Complaint/Hosp Course 66-year-old male with a past medical history of obesity with obstructive sleep apnea, essential hypertension, hyperlipidemia, type 2 diabetes, osteoarthritis, who was brought to [facility] for elective right total knee arthroplasty. 1. Right knee osteoarthritis, status post right total knee arthroplasty-2016. -Postoperative anticoagulation, pain management and weightbearing per surgery. -Continue incentive spirometry. 2. Essential hypertension. Stable. -Continue home medications 3. Hyperlipidemia. -On statin. 4. Hyperglycemia with type 2 diabetes.A1C 8.1. Blood sugar still high-likely postoperative stress. -We will change Lantus to 30 units every morning starting tomorrow. We will cover patient with 1 dose NPH 10 units tonight as next scheduled Lantus will be in a.m. Uptitrate pre-meals to 10 units 3 times daily. Continue Metformin, Accu-Cheks/ISS. - carbohydrate controlled diet, DM education. 5. Obstructive sleep apnea. -Nocturnal CPAP PRN 6. Obesity. -Weight reduction advised. 7. Iron deficiency anemia. -Continue with intravenous iron. -H&H stable. Will monitor. DVT prophylaxis: As per surgery colleagues, 325 mg aspirin 6 weeks. PPI prophylaxis: Protonix. Agree with discharge planning with further rehabilitation. Thank you for allowing us to partake in the care. Please call us at extension [phone] you have any questions. Patient was seen in collaboration with Problems: Consultation Date/Type/Reason Admit Date/Time Feb 18, 2017 at 10:21 Type of Consultation: Internal medicine Referring Provider: TIFFANIE SALINAS MD 24 HR Interval Summary Free Text/Dictation Overall with no acute distress. Blood sugar has been high. Exam/Review of Systems Vital Signs Vitals Vital Signs Date Time Temp Pulse Resp B/P Pulse Ox O2 Delivery O2 Flow Rate FiO2 02/22/17 07:19 98.1 83 20 123/59 96 02/22/17 06:08 2.0 27 02/22/17 00:30 Nasal Cannula Intake and Output 02/21/17 02/21/17 02/22/17 15:00 23:00 07:00 Intake Total 950 ml 80 ml Output Total 800 ml Balance 150 ml 80 ml Exam General: Well developed,adequately built, not in any acute distress . HEENT: Normocephalic, Atraumatic, No laceration or hematoma; Eyes: PEERL, Conjunctiva clear, Anicteric sclera Neck: Supple without any lymphadenopathy, nontender, no JVD, no carotid bruits, trachea midline, no thyromegaly Cardiac: S1, S2 auscultated, regular rhythm and rate, no mumurs or gallop Pulmonary: Normal respiratory effort. Chest clear to auscultation bilaterally, no adventitious breath sounds GI: Abdomen normal to inspection. Soft, non tender, non- distended, no masses, no rebound tenderness or guarding. Bowel sounds active on all four quadrants Genitourinary: Deferred Extremities: Right knee surgical area covered with Thomas wrap. No cyanosis, clubbing, or edema. Pulses [2+] bilaterally. No focal weakness appreciated. Neurologic: Alert to person, place, time, and situation. Affect appropriate, intact sensation. Skin: Clean,dry, and intact. No ecchymosis, no rashes, or lesions Results Result Diagram: 02/22/17 0452 02/22/17 0452 Results 24 hrs Laboratory Tests Test 02/21/17 12:58 02/21/17 17:45 02/21/17 20:21 02/22/17 02:19 Bedside Glucose 260 H 221 H 224 H 255 H Test 02/22/17 04:52 02/22/17 08:54 White Blood Count 5.2 # Red Blood Count 2.98 L Hemoglobin 8.3 L Hematocrit 25.2 L Mean Corpuscular Volume 84.6 Mean Corpuscular Hemoglobin 27.9 L Mean Corpuscular Hemoglobin Concent 32.9 Red Cell Distribution Width 14.7 H Platelet Count 156 Mean Platelet Volume 9.7 Neutrophils % 35.6 L Lymphocytes % 56.7 H Monocytes % 5.6 Eosinophils % 1.7 Basophils % 0.2 Nucleated Red Blood Cells % 0.0 Neutrophils # 1.9 Lymphocytes # 3.0 H Monocytes # 0.3 Eosinophils # 0.1 Basophils # 0.0 Nucleated Red Blood Cells # 0.0 Sodium Level 136 Potassium Level 4.1 Chloride Level 97 Carbon Dioxide Level 32 H Anion Gap 11 Blood Urea Nitrogen 14 Creatinine 0.66 Glucose Level 273 H Calcium Level 8.8 Bedside Glucose 257 H Medications Medications Current Medications Sodium Chloride (NS) 1,000 ml @ 80 mls/hr [id number] IV Last administered on 06:03; Admin Dose 80 MLS/HR; Start 02/18/17 at 15:45 Oxycodone HCl (Roxicodone) 20 mg Q3H PRN PO PAIN LEVEL 8-10 Last administered on 02/22/17 02:39; Admin Dose 20 MG; Start 02/18/17 at 16:00 Oxycodone HCl (Roxicodone) 10 mg Q3H PRN PO PAIN LEVEL 4-7 Last administered on 02/19/17 08:10; Admin Dose 10 MG; Start 02/18/17 at 16:00 Oxycodone HCl (Roxicodone) 5 mg Q3H PRN PO PAIN LEVEL 1-3 Last administered on 02/18/17 18:46; Admin Dose 5 MG; Start 02/18/17 at 16:00 Zolpidem Tartrate (Ambien) 5 mg HS PRN PO INSOMNIA; Start 02/18/17 at 16:00 Aspirin (Ecotrin) 325 mg BID PO Last administered on 02/22/17 08:57; Admin Dose 325 MG; Start 02/18/17 at 21:00 Celecoxib (Celebrex) 200 mg BID PO Last administered on 02/22/17 08:57; Admin Dose 200 MG; Start 02/19/17 at 09:00 Pantoprazole (Protonix Tab) 40 mg DAILY@06 PO Last administered on 02/22/17 06:02; Admin Dose 40 MG; Start 02/19/17 at 06:00 Docusate Sodium/ Ferrous Fumarate (Dilan-Sequels) 1 tab BID PO Last administered on 02/22/17 08:57; Admin Dose 1 TAB; Start 02/19/17 at 09:00 Simethicone (Mylicon) 80 mg TID PRN PO DISTENSION/GAS/BLOATING; Start 02/18/17 at 16:00 Senna/Docusate Sodium (Senokot-S) 2 tab BID PRN PO CONSTIPATION Last administered on 02/21/17 09:06; Admin Dose 2 TAB; Start 02/18/17 at 16:00 Magnesium Hydroxide (Milk Of Mag) 30 ml HS PRN PO CONSTIPATION; Start 02/18/17 at 16:00 Bisacodyl (Dulcolax Supp) 10 mg DAILY PRN [place] CONSTIPATION; Start 02/18/17 at 16 :00 Sodium Biphosphate/ Sodium Phosphate (Fleet Enema) 133 ml DAILY PRN [place] CONSTIPATION; Start 02/18/17 at 16:00 Diphenhydramine HCl (Benadryl) 25 mg Q4H PRN IM ITCHING OR RASH Last administered on 02/20/17 17:23; Admin Dose 25 MG; Start 02/18/17 at 16:00 Naloxone HCl (Narcan) 0.2 mg Q2M PRN IV DECREASED REPIRATORY RATE; Start at 16:00 Gabapentin (Neurontin) 100 mg BID PO Last administered on 02/22/17 08:58; Admin Dose 100 MG; Start 02/19/17 at 09:00 Atorvastatin Calcium (Lipitor) 20 mg QHS PO Last administered on 02/21/17 20: 17; Admin Dose 20 MG; Start 02/19/17 at 21:00 Hydrochlorothiazide (Hydrochlorothiazide) 25 mg DAILY PO Last administered on 02/22/17 08:58; Admin Dose 25 MG; Start 02/20/17 at 09:00 Lisinopril (Zestril) 40 mg DAILY PO Last administered on 02/22/17 08:59; Admin Dose 40 MG; Start 02/20/17 at 09:00 Diagnostic Test (Pha) 1 ea 1 ea 02 XX Last administered on 02/22/17 02:20; Admin Dose 1 EA; Start 02/20/17 at 02:00 Ferric Sodium Gluconate Complex/ Sodium Chloride (Ferrlecit/NS) 110 ml @ 110 mls/hr Q24H IVPB Last administered on 02/21/17 16:30; Admin Dose 110 MLS/HR; Start 02/20/17 at 14:30; Stop 02/24/17 at 15:29 Miscellaneous Information 1 ea NOTE XX ; Start 02/20/17 at 17:00 Glucose (Glutose) 15 gm Q15M PRN PO DECREASED GLUCOSE; Start 02/20/17 at 17:00 Glucose (Glutose) 22.5 gm Q15M PRN PO DECREASED GLUCOSE; Start 02/20/17 at 17: 00 Dextrose (D50w Syringe) 25 ml Q15M PRN IV DECREASED GLUCOSE; Start 02/20/17 at 17:00 Dextrose (D50w Syringe) 50 ml Q15M PRN IV DECREASED GLUCOSE; Start 02/20/17 at 17:00 Glucagon (Glucagen) 1 mg Q15M PRN IM DECREASED GLUCOSE; Start 02/20/17 at 17:00 Glucose (Glutose) 15 gm Q15M PRN BUCCAL DECREASED GLUCOSE; Start 02/20/17 at 17 :00 Insulin Glargine (Lantus) 24 unit DAILY@20 SC Last administered on 02/21/17t 20 :26; Admin Dose 24 UNIT; Start 02/21/17 at 20:00 TERRI EASTMAN NP Feb 22, 2017 11:13
[2017-02-22 14:43] VITALS: BP 134/70; RESP 20
[2017-02-22] MEDS: SOD FERRIC GLUC COMPLX 125 MG in SOD CHLORIDE 0.9% 100 ML IVPB SCH (15:05)
[2017-02-22 20:00] VITALS: BP 134/66; RESP 20
[2017-02-22] MEDS ORDERED: NPH, HUMAN INSULIN ISOPHANE 3ML VIAL SC ONE (20:00)
[2017-02-22] MEDS: ATORVASTATIN 20 MG TAB PO SCH (20:27)
[2017-02-23] MEDS: ACCU-CHEK XX SCH (02:00)
[2017-02-23] MEDS: oxyCODONE 5 MG TAB PO PRN ×4 (02:05→20:03)
[2017-02-23 02:12] VITALS: BP 148/70; RESP 18
[2017-02-23] MEDS: PANTOPRAZOLE (EC) 40 MG TAB PO SCH (06:03)
[2017-02-23] MEDS: SENNA/DOCUSATE NA (8.6MG/50MG) TAB PO PRN (06:03)
[2017-02-23] MEDS: SOD CHLORIDE 0.9% 1,000 ML IV SCH (08:15)
[2017-02-23 08:37] VITALS: BP 134/55; RESP 18
[2017-02-23 08:41] LABS: BASOPHILS % 0.3 % (0.0-2.0); EOSINOPHILS # 0.1 10^3/ul (0.0-0.5); EOSINOPHILS % 2.3 % (0.0-7.0); HEMATOCRIT 26.2 % (42.0-52.0); HEMOGLOBIN 8.4 g/dl (14.0-18.0); LYMPHOCYTES # 1.9 10^3/ul (0.8-2.9); MEAN CORPUSCULAR HEMOGLOBIN 27.5 pg (29.0-33.0); MEAN CORPUSCULAR HGB CONC 32.1 g/dl (32.0-37.0); MEAN CORPUSCULAR VOLUME 85.9 fl (82.0-101.0); MEAN PLATELET VOLUME 9.3 fl (7.4-10.4); MONOCYTE # 0.2 10^3/ul (0.3-0.9); MONOCYTES % 6.5 % (0.0-11.0); NEUTROPHIL # 1.3 10^3/ul (1.6-7.5); NEUTROPHILS % 36.5 % (39.0-77.0); PLATELET COUNT 164 10^3/UL (140-415); POSITIVE DIFF @See below; RED BLOOD COUNT 3.05 10^6/ul (4.70-6.10); RED CELL DISTRIBUTION WIDTH 14.9 % (11.5-14.5); WHITE BLOOD COUNT 3.5 10^3/ul (4.8-10.8)
[2017-02-23 08:43] LABS: LYMPHOCYTES % 54.1 % (15.0-51.0)
[2017-02-23] MEDS ORDERED: INSULIN GLARGINE [LANtus] 3 ML PEN SC SCH (09:00)
[2017-02-23 09:06] LABS: CREATININE 0.67 mg/dl (0.61-1.24); POTASSIUM 3.9 mmol/L (3.5-5.1)
[2017-02-23] MEDS: INSULIN ASPART [NOVOLOG] 3 ML PEN SC SCH ×6 (09:27→18:05)
[2017-02-23] MEDS: CELECOXIB 200 MG CAP PO SCH (09:28)
[2017-02-23] MEDS: GABAPENTIN 100 MG CAP PO SCH (09:28)
[2017-02-23] MEDS: ASPIRIN (EC) 325 MG TAB PO SCH (09:28)
[2017-02-23] MEDS: metFORMIN 500 MG TAB PO SCH ×2 (09:30→18:02)
[2017-02-23] MEDS: FERROUS FUMARATE (SR) TAB PO SCH (09:30)
[2017-02-23] MEDS: HYDROCHLOROTHIAZIDE 25 MG TAB PO SCH (09:30)
[2017-02-23] MEDS: LISINOPRIL 20 MG TAB PO SCH (09:30)
--- NOTE | 2017-02-23 09:32 | PN ---
Date/Time of Note Date/Time of Note DATE: 02/23/17 TIME: 09:29 Assessment/Plan VTE Prophylaxis VTE Prophylaxis Intervention: ambulation, SCD's, other (Aspirin 325 mg) Lines/Catheters IV Catheter Type (from Nrsg): Saline Lock Rubio in Place (from Nrsg): No Assessment/Plan Assessment/Plan -Pain Meds as needed -ASA for DVT Prophylaxis x 6 weeks outpatient discussed. -Continue monitoring as outpatient on discharge -Follow-up at scheduled postop outpatient appointment or sooner if there is any issue. -Patient made aware that there is concern regarding his limited pro activity. Discussed with case maker as well feels that patient has not been proactive in regards to rehabilitation with consistent range of motion in regards to flexion and extension. There is ongoing concern regarding how well patient will return to normal functionality as he does not seem to be doing much on his part to return to full activity. -Patient Stable -Discharge to ARU Subjective 24 Hr Interval Summary 66-year-old male postop day 5 status post right total knee arthroplasty. Denies any acute overnight events. No chest pain/tightness or shortness of breath. Patient remains limited on flexion and extension of the right knee. Limited weightbearing. There is continued concern regarding patient's pro- activity. Pain Control: well controlled Exam/Review of Systems Vital Signs Vitals Vital Signs Date Time Temp Pulse Resp B/P Pulse Ox O2 Delivery O2 Flow Rate FiO2 02/23/17 08:37 97.9 74 18 134/55 99 02/23/17 06:15 2.0 02/22/17 06:08 27 02/22/17 00:30 Nasal Cannula Intake and Output 02/22/17 02/22/17 02/23/17 15:00 23:00 07:00 Intake Total 3010 ml 840 ml Output Total 1500 ml 850 ml Balance 1510 ml -10 ml Exam Free Text/Dictation -No complications with dressing intact. -4+/5 Tibialis Anterior, EHL Gastrocnemius/Soleus and Peroneals -Normal Sensation -Patient is able to actively flex up to 20 today.About 5 lag from full extension. -Palpable DP/PT, Capillary Refill <2 secs -No Distal Edema -Negative Leslee Sign/No calf pain -Toes Freely Movable Constitutional: alert, oriented, well developed Results Result Diagram: 02/23/17 0810 02/23/1710 NAVARRO LIGHT PA-C Feb 23, 2017 09:32
--- NOTE | 2017-02-23 11:19 | CONS ---
Date/Time of Note Date/Time of Note DATE: 02/23/17 TIME: : Assessment/Plan Assessment/Plan Chief Complaint/Hosp Course 66-year-old male with a past medical history of obesity with obstructive sleep apnea, essential hypertension, hyperlipidemia, type 2 diabetes, osteoarthritis, who was brought to [facility] for elective right total knee arthroplasty. 1. Right knee osteoarthritis, status post right total knee arthroplasty-2016. -Postoperative anticoagulation, pain management and weightbearing per surgery. -Continue incentive spirometry. 2. Essential hypertension. Stable. -Continue home medications 3. Hyperlipidemia. -On statin. 4. Type 2 diabetes.A1C 8.1. Initial hyperglycemia likely 2/2 to stress response. Now with good glycemic control. -Patient not receptive to continue meal time insulin on DC. Recommend Lantus 30 units with continuation of Metformin on discharge.Needs PCP follow-up in 1-2 weeks and A1C repeat in 4 weeks. He is also getting dcd to SNF where they can monitor his blood glucose and adjust as needed. - carbohydrate controlled diet, DM education. 5. Obstructive sleep apnea. -Nocturnal CPAP PRN 6. Obesity. -Weight reduction advised. 7. Iron deficiency anemia. -Continue with iron repletion -H&H stable. Will monitor. DVT prophylaxis: As per surgery colleagues, 325 mg aspirin 6 weeks. PPI prophylaxis: Protonix. Agree with discharge planning to rehabilitation center. Thank you for allowing us to partake in the care. Please call us at extension [phone] you have any questions. Patient was seen in collaboration with Problems: Consultation Date/Type/Reason Admit Date/Time Feb 18, 2017 at 10:21 Type of Consultation: Internal medicine Referring Provider: TIFFANIE SALINAS MD 24 HR Interval Summary Free Text/Dictation No acute distress. For DC to a rehab center Exam/Review of Systems Vital Signs Vitals Vital Signs Date Time Temp Pulse Resp B/P Pulse Ox O2 Delivery O2 Flow Rate FiO2 02/23/17 08:37 97.9 74 18 134/55 99 02/23/17 06:15 2.0 02/22/17 06:08 27 02/22/17 00:30 Nasal Cannula Intake and Output 02/22/17 02/22/17 02/23/17 15:00 23:00 07:00 Intake Total 3010 ml 840 ml Output Total 1500 ml 850 ml Balance 1510 ml -10 ml Exam General: Well developed,adequately built, not in any acute distress . HEENT: Normocephalic, Atraumatic, No laceration or hematoma; Eyes: PEERL, Conjunctiva clear, Anicteric sclera Neck: Supple without any lymphadenopathy, nontender, no JVD, no carotid bruits, trachea midline, no thyromegaly Cardiac: S1, S2 auscultated, regular rhythm and rate, no mumurs or gallop Pulmonary: Normal respiratory effort. Chest clear to auscultation bilaterally, no adventitious breath sounds GI: Abdomen normal to inspection. Soft, non tender, non- distended, no masses, no rebound tenderness or guarding. Bowel sounds active on all four quadrants Genitourinary: Deferred Extremities: Right knee surgical area covered with Thomas wrap. No cyanosis, clubbing, or edema. Pulses [2+] bilaterally. No focal weakness appreciated. Neurologic: Alert to person, place, time, and situation. Affect appropriate, intact sensation. Skin: Clean,dry, and intact. No ecchymosis, no rashes, or lesions Results Result Diagram: 02/23/17 0810 02/23/17 0810 Results 24 hrs Laboratory Tests Test 02/22/17 12:54 02/22/17 17:44 02/22/17 21:42 02/23/17 01:56 Bedside Glucose 248 H 143 169 181 Test 02/23/17 08:10 02/23/17 08:42 White Blood Count 3.5 #L Red Blood Count 3.05 L Hemoglobin 8.4 L Hematocrit 26.2 L Mean Corpuscular Volume 85.9 Mean Corpuscular Hemoglobin 27.5 L Mean Corpuscular Hemoglobin Concent 32.1 Red Cell Distribution Width 14.9 H Platelet Count 164 Mean Platelet Volume 9.3 Neutrophils % 36.5 L Lymphocytes % 54.1 H Monocytes % 6.5 Eosinophils % 2.3 Basophils % 0.3 Nucleated Red Blood Cells % 0.0 Neutrophils # 1.3 L Lymphocytes # 1.9 Monocytes # 0.2 L Eosinophils # 0.1 Basophils # 0.0 Nucleated Red Blood Cells # 0.0 Sodium Level 136 Potassium Level 3.9 Chloride Level 94 L Carbon Dioxide Level 34 H Anion Gap 12 Blood Urea Nitrogen 12 Creatinine 0.67 Glucose Level 204 Calcium Level 9.0 Bedside Glucose 208 Medications Medications Current Medications Sodium Chloride (NS) 1,000 ml @ 80 mls/hr [id number] IV Last administered on 06:03; Admin Dose 80 MLS/HR; Start 02/18/17 at 15:45 Oxycodone HCl (Roxicodone) 20 mg Q3H PRN PO PAIN LEVEL 8-10 Last administered on 02/23/17 06:04; Admin Dose 20 MG; Start 02/18/17 at 16:00 Oxycodone HCl (Roxicodone) 10 mg Q3H PRN PO PAIN LEVEL 4-7 Last administered on 02/19/17 08:10; Admin Dose 10 MG; Start 02/18/17 at 16:00 Oxycodone HCl (Roxicodone) 5 mg Q3H PRN PO PAIN LEVEL 1-3 Last administered on 02/18/17 18:46; Admin Dose 5 MG; Start 02/18/17 at 16:00 Zolpidem Tartrate (Ambien) 5 mg HS PRN PO INSOMNIA; Start 02/18/17 at 16:00 Aspirin (Ecotrin) 325 mg BID PO Last administered on 02/23/17 09:28; Admin Dose 325 MG; Start 02/18/17 at 21:00 Celecoxib (Celebrex) 200 mg BID PO Last administered on 02/23/17 09:28; Admin Dose 200 MG; Start 02/19/17 at 09:00 Pantoprazole (Protonix Tab) 40 mg DAILY@06 PO Last administered on 02/23/17 06:03; Admin Dose 40 MG; Start 02/19/17 at 06:00 Docusate Sodium/ Ferrous Fumarate (Dilan-Sequels) 1 tab BID PO Last administered on 02/23/17 09:30; Admin Dose 1 TAB; Start 02/19/17 at 09:00 Simethicone (Mylicon) 80 mg TID PRN PO DISTENSION/GAS/BLOATING Last administered on 02/23/17 06:03; Admin Dose 80 MG; Start 02/18/17 at 16:00 Senna/Docusate Sodium (Senokot-S) 2 tab BID PRN PO CONSTIPATION Last administered on 02/23/17 06:03; Admin Dose 2 TAB; Start 02/18/17 at 16:00 Magnesium Hydroxide (Milk Of Mag) 30 ml HS PRN PO CONSTIPATION; Start 02/18/17 at 16:00 Bisacodyl (Dulcolax Supp) 10 mg DAILY PRN [place] CONSTIPATION; Start 02/18/17 at 16 :00 Sodium Biphosphate/ Sodium Phosphate (Fleet Enema) 133 ml DAILY PRN [place] CONSTIPATION; Start 02/18/17 at 16:00 Diphenhydramine HCl (Benadryl) 25 mg Q4H PRN IM ITCHING OR RASH Last administered on 02/20/17 17:23; Admin Dose 25 MG; Start 02/18/17 at 16:00 Naloxone HCl (Narcan) 0.2 mg Q2M PRN IV DECREASED REPIRATORY RATE; Start at 16:00 Gabapentin (Neurontin) 100 mg BID PO Last administered on 02/23/17 09:28; Admin Dose 100 MG; Start 02/19/17 at 09:00 Atorvastatin Calcium (Lipitor) 20 mg QHS PO Last administered on 02/22/17 20: 27; Admin Dose 20 MG; Start 02/19/17 at 21:00 Hydrochlorothiazide (Hydrochlorothiazide) 25 mg DAILY PO Last administered on 02/23/17 09:30; Admin Dose 25 MG; Start 02/20/17 at 09:00 Lisinopril (Zestril) 40 mg DAILY PO Last administered on 02/23/17 09:30; Admin Dose 40 MG; Start 02/20/17 at 09:00 Diagnostic Test (Pha) 1 ea 1 ea 02 XX Last administered on 02/22/17 02:20; Admin Dose 1 EA; Start 02/20/17 at 02:00 Ferric Sodium Gluconate Complex/ Sodium Chloride (Ferrlecit/NS) 110 ml @ 110 mls/hr Q24H IVPB Last administered on 02/22/17 15:05; Admin Dose 110 MLS/HR; Start 02/20/17 at 14:30; Stop 02/24/17 at 15:29 Miscellaneous Information 1 ea NOTE XX ; Start 02/20/17 at 17:00 Glucose (Glutose) 15 gm Q15M PRN PO DECREASED GLUCOSE; Start 02/20/17 at 17:00 Glucose (Glutose) 22.5 gm Q15M PRN PO DECREASED GLUCOSE; Start 02/20/17 at 17: 00 Dextrose (D50w Syringe) 25 ml Q15M PRN IV DECREASED GLUCOSE; Start 02/20/17 at 17:00 Dextrose (D50w Syringe) 50 ml Q15M PRN IV DECREASED GLUCOSE; Start 02/20/17 at 17:00 Glucagon (Glucagen) 1 mg Q15M PRN IM DECREASED GLUCOSE; Start 02/20/17 at 17:00 Glucose (Glutose) 15 gm Q15M PRN BUCCAL DECREASED GLUCOSE; Start 02/20/17 at 17 :00 Insulin Glargine (Lantus) 30 unit QAM SC Last administered on 02/23/17t 09:32 ; Admin Dose 30 UNIT; Start 02/23/17 at 09:00 TERRI EASTMAN NP Feb 23, 2017 11:19
[2017-02-23] MEDS: SOD FERRIC GLUC COMPLX 125 MG in SOD CHLORIDE 0.9% 100 ML IVPB SCH (15:53)
[2017-02-23 16:00] VITALS: BP 136/62; RESP 18
--- NOTE | 2017-02-24 08:00 | DS ---
Date/Time of Note Date/Time of Note DATE: 02/24/17 TIME: 07:57 Discharge Summary Admission/Discharge Info Admit Date/Time Feb 18, 2017 at 10:21 Discharge Date/Time Feb 23, 2017 at 20:30 Discharge Diagnosis Status post right total knee replacement Patient Condition: Good Hospital Course On the day of admission, the patient underwent right total knee arthroplasty Intraoperative complications: None Postoperative complications: None The patient was given prophylactic antibiotics and anticoagulants. On the day of surgery and first postoperative day patient was started on gait training and was taught usual restrictions following knee replacement On postoperative day 1 dressing was clean dry and intact. No complications were observed. On the day of discharge, the wound was clean and healing well; there was no sign of infection. Wound care instructions were discussed with the patient. Lengthy discussion was had with patient regarding pro activity status post surgery. Patient has had limited ambition in regards to rehabilitation. There has been significant improvement in regards to his range of motion and ability to weight-bear. Patient seems to be unresponsive with positive reinforcement and encouragement to be consistent and at home therapy. There is concern regarding patient's rehabilitation postoperatively but we will remain hopeful and continue to encourage the patient. Discharge Temperature: 98.3 Discharge White Blood Cell Count: 3.5 Discharge Hemoglobin: 8.4 The patient was discharged home with home health as he was denied authorization for rehab unit by Worker's Compensation insurance. Arrangements were made for visiting nurses and home health/physical therapy. The patient will be seen in office at scheduled postoperative evaluation date given on their preoperative exam. Should patient complain of any problems prior to scheduled postoperative evaluation date, they may call into outpatient clinic to determine if they need to be scheduled at sooner appointment to be seen immediately if needed. Discharge medications: As per medication reconciliation form Diet: Same as preadmission diet. This is Navarro Zamorano PA-C dictating discharge summary for Dr. Lesia Nolan. Home Meds Reported Medications Atorvastatin* (Atorvastatin*) 40 Mg Tablet, 20 MG PO QHS, #30 TAB 02/17/17 Meloxicam* (Meloxicam*) 7.5 Mg/5 Ml Oral.susp, 15 MG PO DAILY, #300 ML 02/17/17 Lisinopril* (Lisinopril*) 40 Mg Tablet, 40 MG PO DAILY, #30 TAB 12/5/17 Metformin Hcl* (Metformin Hcl*) 1,000 Mg Tablet, 1000 MG PO WITH BREAKFAST DINNE , #30 TAB 02/17/17 Hydrochlorothiazide* (Hydrochlorothiazide*) 25 Mg Tab, 25 MG PO DAILY, #30 TAB 02/17/17 Trospium Chloride (Trospium Chloride) 20 Mg Tablet, 20 MG PO DAILY, TAB 02/17/17 Pantoprazole* (Pantoprazole*) 40 Mg Tablet.dr, 40 MG PO DAILY, TAB 02/17/17 Glipizide* (Glipizide*) 10 Mg Tablet, 20 MG PO BID, TAB 02/17/17 Follow-up Plan Follow-up at postoperative visit provided at her preoperative exam today. Primary Care Provider Not On Staff Doctor Pending Labs Laboratory Tests Test 02/23/17 08:10 02/23/17 08:42 02/23/17 12:04 02/23/17 17:53 White Blood Count 3.510^3/ul (4.8-10.8) Red Blood Count 3.0510^6/ul (4.70-6.10) Hemoglobin 8.4g/dl (14.0-18.0) Hematocrit 26.2% (42.0-52.0) Mean Corpuscular Volume 85.9fl (82.0-101.0) Mean Corpuscular Hemoglobin 27.5pg (29.0-33.0) Mean Corpuscular Hemoglobin Concent 32.1g/dl (32.0-37.0) Red Cell Distribution Width 14.9% (11.5-14.5) Platelet Count 65677^3/UL (140-415) Mean Platelet Volume 9.3fl (7.4-10.4) Neutrophils % 36.5% (39.0-77.0) Lymphocytes % 54.1% (15.0-51.0) Monocytes % 6.5% (0.0-11.0) Eosinophils % 2.3% (0.0-7.0) Basophils % 0.3% (0.0-2.0) Nucleated Red Blood Cells % 0.0/100WBC (0.0-0.0) Neutrophils # 1.310^3/ul (1.6-7.5) Lymphocytes # 1.910^3/ul (0.8-2.9) Monocytes # 0.210^3/ul (0.3-0.9) Eosinophils # 0.110^3/ul (0.0-0.5) Basophils # 0.010^3/ul (0.0-0.1) Nucleated Red Blood Cells # 0.010^3/ul (0.0-0.0) Sodium Level 136mmol/L (135-144) Potassium Level 3.9mmol/L (3.5-5.1) Chloride Level 94mmol/L (97-110) Carbon Dioxide Level 34mmol/L (21-31) Anion Gap 12 (8-16) Blood Urea Nitrogen 12mg/dl (7-20) Creatinine 0.67mg/dl (0.61-1.24) Glucose Level 204mg/dl (70-220) Calcium Level 9.0mg/dl (8.4-10.2) Bedside Glucose 208mg/dL (70-220) 226mg/dL (70-220) 128mg/dL (70-220) NAVARRO LIGHT PA-C Feb 24, 2017 08:00
== END 2017-02-23 20:30 | disposition home health service (06) | DRG 470 ==
LOC: REC 10:21 → MS1 16:46
PROVIDERS: ADMIT Orthopaedic Surgery Adult Reconstructive Orthopaedic Surgery; ATTEND Orthopaedic Surgery Adult Reconstructive Orthopaedic Surgery
PROC: 0SRC069 Replacement of Right Knee Joint with Oxidized Zirconium on Polyethylene Synthetic Substitute, Cemented, Open Approach (ICD-10-PCS; principal; 2017-02-19)
DX: M17.11 Unilateral primary osteoarthritis, right knee (principal); E11.65 Type 2 diabetes mellitus with hyperglycemia; I10 Essential (primary) hypertension; E78.5 Hyperlipidemia, unspecified; D50.9 Iron deficiency anemia, unspecified; E66.9 Obesity, unspecified; Z68.35 Body mass index [BMI] 35.0-35.9, adult; G47.33 Obstructive sleep apnea (adult) (pediatric)
CPT/HCPCS: 73560; 80048; 80061; 82962; 83036; 83540; 84443; 85025; 94660; 97003; 97110; 97116; 97163; 97166; 97530; 97535; J0360; J0735; J1170; J1200; J1815; J1885; J2250; J2274; J2370; J2405; J2765; J2795; J2916; J3010; J3370; J7030